=== PATIENT | male | born 1975 | race Caucasian/White ===

== ENCOUNTER → 2017-05-01 11:09 | Outpatient (POV) | payer BC, SELFPAY | PROVIDERS: Visit Provider Nurse Practitioner Acute Care | DX: Z00.00 Encounter for general adult medical examination without abnormal findings (principal) ==

== ENCOUNTER → 2017-11-20 10:30 | Outpatient (POV) | payer BC, SELFPAY | PROVIDERS: Visit Provider Nurse Practitioner Acute Care | DX: Z00.00 Encounter for general adult medical examination without abnormal findings (principal) ==

== ENCOUNTER 2019-05-30 16:30 | Outpatient (RCR) | payer BC, SELFPAY | END 2019-06-18 14:21 | disposition home or self-care (01) | LOC: PT.CARL 16:30 | PROVIDERS: Visit Provider Orthopaedic Surgery | DX: M17.0 Bilateral primary osteoarthritis of knee (principal); M25.562 Pain in left knee; M25.561 Pain in right knee | CPT/HCPCS: 97014; 97110; 97163; G0283 ==

== ENCOUNTER 2021-09-02 14:15 | Emergency (ER) | payer BC, SELFPAY ==
[2021-09-02 14:21] VITALS: BP 149/77; PULSE 66; RESP 18; TEMP 36.8; O2SAT 99; BMI 40.6
--- NOTE | 2021-09-02 14:25 | CT_ITS ---
FINAL REPORT TECHNIQUE: Axial images through the abdomen and pelvis were performed without contrast. This study was performed with techniques to keep radiation doses as low as reasonably achievable, (ALARA). Individualized dose reduction techniques using automated exposure control or adjustment of mA and/or kV according to the patient's size were employed. CLINICAL HISTORY: RIGHT FLANK PAIN FINDINGS: ABDOMEN: The lung bases are clear. The heart size is normal. There is mild fatty infiltration of the liver. The patient is status post cholecystectomy. The spleen is normal. No adrenal mass is identified. The aorta is normal in caliber. There is no significant free fluid or adenopathy. There is no nephrolithiasis. There is no hydronephrosis. There is mild right hydroureter. PELVIS: The appendix is not identified. There is mild right hydroureter with a probable 4 mm stone just proximal to the right UVJ. There is no significant free fluid or adenopathy. There is scattered diverticula in the sigmoid colon. IMPRESSION: Mild right hydroureter as detailed above. No hydronephrosis or nephrolithiasis. Reviewed, Interpreted and Dictated by Stalin Peoples III, MD Transcribed by Jeniffer Lovett Authenticated and [facility]
--- NOTE | 2021-09-02 14:27 | HMH.EDGENADL ---
ED Disposition Clinical Impression: Ureteral stone Disposition: Home, Self-Care Condition on Discharge: Good Instructions: DI for Kidney Stones Additional Instructions: follow up urology, return for worse Prescriptions: Ibuprofen [Motrin 800mg Tab] 800 mg PO Q8HP PRN #30 tab PRN Reason: Moderate Pain Transmission Status: Received by etaskr Referrals: Burak Loomis MD [Staff Physician] - - Critical Care Critical Care Time: No Attestation: On 09/02/21, the high probability of a clinically significant, sudden or life threatening deterioration of the following system(s) required my full and direct attention, intervention and personal management. The time I documented below is in addition to time spent performing reported procedures but includes the following listed in this critical care notation. Medical Decision Making - Medical Records Medical records reviewed: Yes: I reviewed the patient's medical records. - Lloyd Inquiry Pt receiving controlled substance: No Vital Signs: 09/02/21 14:21 09/02/21 15:30 09/02/21 16:20 Temperature 98.2 F Temperature Source Oral Pulse Rate 61 52 L Pulse Rate [Left Radial] 66 Respiratory Rate 18 16 Blood Pressure 135/72 128/72 Blood Pressure [Right Arm] 149/77 H Blood Pressure Mean [Right Arm] 101 Blood Pressure Position 02 Sat by Pulse Oximetry 99 96 100 Oxygen Delivery Method Room Air Room Air Room Air 09/02/21 16:35 Temperature 98.2 F Temperature Source Oral Pulse Rate 59 L Pulse Rate [Left Radial] Respiratory Rate 16 Blood Pressure 135/65 Blood Pressure [Right Arm] Blood Pressure Mean [Right Arm] Blood Pressure Position Sitting 02 Sat by Pulse Oximetry Oxygen Delivery Method Room Air - Lab Data Lab Results 09/02/21 14:27: Urine Color Yellow, Urine Appearance Clear, Urine pH 6.0, Ur Specific [place] 1.015, Urine Protein Negative, Urine Glucose (UA) Negative, Urine Ketones Negative, Urine Blood 2+, Urine Nitrate Negative, Urine Bilirubin Negative, Urine Urobilinogen 1.0, Ur Leukocyte Esterase Negative, Urine RBC 3-5, Urine WBC None, Ur Squamous Epith Cells None, Urine Bacteria None 09/02/21 15:35: WBC 14.7 H, RBC 4.58 L, Hgb 14.8, Hct 41.9 L, MCV 91.5, MCH 32.3 H, MCHC 35.3, RDW 12.9, Plt Count 203, MPV 8.3, Neut % (Auto) 87.1 H, Lymph % (Auto) 8.4 L, [place] % (Auto) 3.2, Eos % (Auto) 0.6, Baso % (Auto) 0.7, Neut # (Auto) 12.8 H, Lymph # (Auto) 1.2, [place] # (Auto) 0.5, Eos # (Auto) 0.1, Baso # (Auto) 0.1, Total Counted 100, Neutrophils % (Manual) 85 H, Band Neutrophils % 1.0, Lymphocytes % (Manual) 11, Monocytes % (Manual) 3, Platelet Estimate Normal, RBC Morphology Normal 09/02/21 15:35: Sodium 141, Potassium 3.8, Chloride 107, Carbon Dioxide 27, Anion Gap 10.8, BUN 15, Creatinine 1.30 H, Estimated Creat Clear 137, Estimated GFR 59, Est GFR ( Amer) 72, Glucose 119 H, Calcium 9.4, Total Bilirubin 1.0, AST 40, ALT 40, Alkaline Phosphatase 83, Total Protein 7.6, Albumin 4.6, Globulin 3.0, Albumin/Globulin Ratio 1.5, Lipase 69 Result diagrams: 09/02/21 15:35 09/02/21 15:35 Orders (Tests/Meds): ED MEDICATIONS Discontinued Medications Generic Name Dose Route Start Last Admin Trade Name Freq PRN Reason Stop Dose Admin Sodium Chloride 10 ml 09/02/21 14:25 Sodium Chloride 0.9% 10ml Flush Syringe IV 10/02/21 14:24 NEEDED PRN Maintain IV Site General Adult HPI - General Chief complaint: PAIN Stated complaint: lower back pain, vomiting Time Seen by Provider: 09/02/21 14:27 Mode of Arrival: Ambulatory Limitations: No Limitations Description of Symptoms (Recalled from ER Triage Doc. by RN): pt to ed c/o lower right back pain. pt states it is sharp in nature and gradually got worse today. pt states he has been having urinary urgency. pt reports a hx of kidney stones. pt reports one episode of emesis. - History of Present Illness HPI narrative: rt low back/flank pain this am, better now h/
[2021-09-02 14:35] LABS: Microscopic, Urine URINE MICROSCOPIC (MICROSCOPIC)
[2021-09-02 14:37] LABS: Appearance,Urine CLEAR (Clear); Bilirubin,Urine Negative (Negative); Blood, Urine 2+ (Negative); Color,Urine YELLOW (Yellow); Glucose,Urine (UA) Negative (Negative); Ketones,Urine Negative (Negative); Leukocyte Esterase,Urine Negative (Negative); Nitrate,Urine Negative (Negative); Protein,Urine Negative (Negative); Specific Gravity, Urine 1.015 (1.005-1.030)
--- NOTE | 2021-09-02 15:10 | PC.NURSE ---
pt and updated on plan of care
[2021-09-02 15:30] VITALS: BP 135/72; PULSE 61; RESP 16; O2SAT 96
--- NOTE | 2021-09-02 15:32 | PC.NURSE ---
lab called for blood collect
[2021-09-02 15:55] LABS: Basophils # 0.1 K/mm3 (0-0.2); Basophils % 0.7 % (0.1-2.0); Eosinophils # 0.1 K/mm3 (0.0-0.4); Eosinophils % 0.6 % (0.1-12.0); Hematocrit 41.9 % (42.0-52.0); Hemoglobin 14.8 g/dL (14.1-18.0); Lymphocytes # 1.2 K/mm3 (0.7-4.5); Lymphocytes % 8.4 % (10-50); Mean Corpuscular HGB Conc 35.3 g/dL (31.8-35.4); Mean Corpuscular Hemoglobin 32.3 pg (27.0-31.2); Mean Corpuscular Volume 91.5 fl (80-94); Mean Platelet Volume 8.3 fl (7.4-10.4); Monocytes # 0.5 K/mm3 (0.1-1.0); Monocytes % 3.2 % (1.7-9.3); Neutrophils # 12.8 K/mm3 (1.8-7.8); Neutrophils % 87.1 % (37.0-80.0); Platelet Count 203 K/mm3 (142-424); Red Blood Count 4.58 M/mm3 (4.60-6.20); Red Cell Distribution Width 12.9 % (11.5-17.5); White Blood Count 14.7 K/mm3 (4.8-10.8)
[2021-09-02 16:02] LABS: MANUAL DIFFERENTIAL MANUAL DIFFERENTIAL (MANUAL DIFF)
[2021-09-02 16:04] LABS: Chloride 107 mmol/L (98-107)
[2021-09-02 16:05] LABS: Potassium 3.8 mmoL/L (3.5-5.1); Sodium 141 mmol/L (136-145)
[2021-09-02 16:07] LABS: Alanine Aminotransferase 40 U/L (12-78); Alkaline Phosphatase 83 U/L (38-126); Aspartate Amino Transferase 40 U/L (17-59); Blood Urea Nitrogen 15 mg/dl (9-20); Creatinine Clearance Estimated 137 mL/min (50-200); Estimated Glomerular Filt Rate 59 ml/min (>60); GFR (African American) 72 ML/MIN (>60)
[2021-09-02 16:08] LABS: Albumin Level 4.6 g/dl (3.5-5.0); Albumin/Globulin Ratio 1.5 (1.1-1.8); Anion Gap 10.8 mEq/L (5-15); Calcium 9.4 mg/dl (8.4-10.2); Carbon Dioxide 27 mmol/L (22.0-30.0); Glucose 119 mg/dl (74-100); Lipase 69 U/L (23-300); Total Protein,Serum 7.6 g/dl (6.3-8.2)
[2021-09-02 16:14] LABS: Lymphocytes % 11 % (10-50); Monocytes % 3 % (2-9); Neutrophils % 85 % (42-76); Platelet Estimate Normal; RBC Morphology Normal; Total Cells Counted 100
--- NOTE | 2021-09-02 16:19 | PC.NURSE ---
pt resting quietly at bedside. pt offered warm blanket, pt refused.
[2021-09-02 16:20] VITALS: BP 128/72; PULSE 52; O2SAT 100
[2021-09-02 16:35] VITALS: BP 135/65; PULSE 59; RESP 16; TEMP 36.8; O2SAT 96
== END 2021-09-02 16:36 | disposition home or self-care (01) ==
LOC: ER 14:23
PROVIDERS: Emergency Provider Emergency Medicine; PCP Nurse Practitioner Family
DX: N20.1 Calculus of ureter (principal)
CPT/HCPCS: 36415; 74176; 80053; 81001; 83690; 85007; 85025; 99284

== ENCOUNTER 2021-09-14 07:00 | Outpatient (RCR) | payer BC, SELFPAY | END 2021-10-25 16:44 | disposition home or self-care (01) | LOC: PT.CARL 07:00 | PROVIDERS: Visit Provider Nurse Practitioner Family | DX: M54.50 Low back pain, unspecified (principal) | CPT/HCPCS: 97010; 97012; 97014; 97110; 97140; 97163; G0283 ==

== ENCOUNTER → 2021-12-07 10:24 | Outpatient (CLI) | payer BC, SELFPAY ==
--- NOTE | 2021-12-07 10:28 | XR_ITS ---
FINAL REPORT CLINICAL HISTORY: KIDNEY STONE COMPARISON: CT dated 09/02/2021 FINDINGS: ABDOMEN SINGLE VIEW There is an unremarkable gas pattern. No bowel dilation is identified. There is a right pelvic calcification, likely corresponds to chronic distal right ureteral stone measuring 5 x 4 mm. No radiopaque renal stone is identified. The patient is status post cholecystectomy. IMPRESSION: No renal stone identified. Reviewed, Interpreted and Dictated by Jignesh Wright MD Transcribed by Angie Ring Authenticated and [facility]
== END ==
PROVIDERS: PCP Nurse Practitioner Family; Visit Provider Urology
DX: N20.0 Calculus of kidney (principal)
CPT/HCPCS: 74018

== ENCOUNTER → 2021-12-08 12:20 | Outpatient (CLI) | payer BC, SELFPAY | PROVIDERS: PCP Nurse Practitioner Family; Visit Provider Urology | DX: Z01.812 Encounter for preprocedural laboratory examination (principal); Z20.822 Contact with and (suspected) exposure to COVID-19; N20.1 Calculus of ureter | CPT/HCPCS: C9803; U0003; U0005 ==

== ENCOUNTER 2021-12-10 08:20 | Day surgery (SDC) | payer BC, SELFPAY ==
[2021-12-08 12:42] VITALS: BMI 42.7
[2021-12-10] VITALS (10 sets, daily range): BP systolic 112–149; BP diastolic 62–83; PULSE 67–78; RESP 13–18; TEMP 36.4–36.6; O2SAT 92–98
--- NOTE | 2021-12-10 09:12 | EXP.ANES.CKL ---
PFSH PFS Medical History Arthritis GERD (gastroesophageal reflux disease) Hyperlipidemia Hypertension DANG on CPAP Surgical History History of appendectomy History of cholecystectomy History of excision of lesion Family History Other No significant family history Social History Smoking Status: Never smoker alcohol intake: never substance use type: denies use current occupational status: employed Travel in the last 8 weeks: None [facility] Anesthesia Checklist Patient Identification Patient Identification: Arm Band and Verbal (Name & ) Structural Data Admitted From: Home Planned Operative Procedure/s: Ureteroscopy Consent for Planned Operative Procedure(s) Verified: Yes NPO Status Verified Time NPO: 00:00 Chart Verification Results Verified: CBC and BMP Additional verifications Anesthesia Reactions: No Hx Blood Transfusions: No Blood Transfusion Reaction: No Airway Assessment C-Spine Mobility Assessed: Yes TMJ Mobility Assessed: Yes Dentition: Good Dentition Neurological Assessment Level of Consciousness: Awake Hx Seizures: No Numbness or tingling in extremities: No Anesthesia Plan Anesthesia Risk discussed: Yes Anesthesia Plan: Verified ASA Class: III Anesthesia Type: General
--- NOTE | 2021-12-10 11:27 | XR_ITS ---
FINAL REPORT CLINICAL HISTORY: STONE EXTRACTION IN OR ft: 0:22 FINDINGS: Fluoroscopic guidance was provided for the operating services. A single spot film was provided. 22 seconds of fluoroscopy time was utilized. IMPRESSION: 22 seconds of fluoroscopy time. Reviewed, Interpreted and Dictated by Jignesh Wright MD Transcribed by Alon Mendoza Authenticated and [facility]
--- NOTE | 2021-12-10 11:29 | P.PNANES_ITS ---
[facility] Anesthesia Record Part I Anesthesia Record I Intake, IV Amount: 400 Estimated blood loss (mL): 0 Urine output (mL): 0 Blood Pressure: 120/63 SaO2: 92 Pulse Rate: 67 Respiratory Rate: 13 Temperature: 97.5 F Patient is:: Drowsy and Oral/Nasal airway Stable to PACU at:: 11:28
--- NOTE | 2021-12-10 11:36 | EXP.OP.NOTE ---
Date of procedure: 12/10/21 Pre-op Diagnosis:: 5 mm right distal ureteral stone Post-op Diagnosis:: 5 mm distal ureteral stone, right ureteral stenosis Procedure performed:: Right ureteroscopy with ureteral dilation and stone extraction Surgeon:: Burak Loomis MD MANAGER HRIS:: Dev Reynoso Anesthesia: LMA Estimated blood loss (mL): 0 Clinical Note:: 46-year-old white male with history of right distal ureteral stone and Christa. He has continued to have some urinary frequency and urgency and recent KUB shows a calcification in the region of the right distal ureter. He has not had a lot of right flank pain but does have a history of some chronic back pain. Operative findings:: 5 mm stone noted in the distal ureter. The distal ureteral segment was stenotic and was dilated to allow passage of the stone. Operative note:: Patient taken to the operating room after informed consent was obtained. He was placed on the operating table general anesthesia administered. He was prepped draped in the standard surgical fashion and preoperative antibiotics and sequential compression devices placed. He was placed into the dorsal lithotomy position. The 22 Michael passed into the urethra and into the bladder. The bladder was examined in a systematic fashion and no abnormalities were noted. The ureteral orifices in their normal anatomic position. A guidewire passed into the right ureteral orifice and under fluoroscopy passed into the right renal pelvis without evidence of obstruction. Fluoroscopy did reveal calcification region of the distal ureter. The cystoscope removed and a semirigid ureteroscope passed into the bladder and into the right ureter and up to the level of the stone. A 1.9 [place] stone basket was used to grasp the stone but it was unable to pass through the distal ureteral segment. The stone was then disengaged from the basket and the ureteroscope removed. A 4 x 15 mm ureteral dilator passed over the guidewire and under fluoroscopy the distal ureter dilated to 13 preeti for 3 minutes. Balloon then deflated and removed. The semirigid ureteroscope was repassed up to the level of the stone. The stone was grasped and removed with still little bit of resistance right at the ureteral orifice. The stone was removed and passed off. Looking back into the bladder and a little bit of trauma was noted at the right ureteral orifice of the oozing was noted from the superior segment of the orifice. The guidewire was removed as I do not believe a stent is necessary. The bladder drained scope removed Urojet placed into the urethra for comfort. Patient tolerated procedure well no complications. Condition: stable Disposition: PACU Specimens:: Stone Complications:: None
--- NOTE | 2021-12-10 12:08 | SUR.PHASEI ---
1157- detailed report called to samina booker in post op 1159- pt left in stable condition on monitors with samina booker. All vitals stable
--- NOTE | 2021-12-10 14:28 | EXP.ANES.II ---
[facility] Anesthesia Record Part II Anesthesia Record Part II Discharge Time: 11:58 Destination: Surgical Day Care (OP Surgery) PACU nurse assessment reviewed?: Yes Patient Condition:: Good Anesthesia Complications:: None Swallowing reflex intact?: Yes Cyanosis?: No Blood Pressure: 135/82 Pulse Rate: 76 Temperature: 97.5 F Mental Status: Alert & Oriented Pain level:: 0 Nausea and/or vomitting:: None Intake, IV Amount: 0
== END 2021-12-10 12:29 | disposition home or self-care (01) ==
PROVIDERS: PCP Nurse Practitioner Family; Visit Provider Urology
PROC: (CPT 52352; principal; 2021-12-10 10:00)
DX: N20.1 Calculus of ureter (principal); Q62.10 Congenital occlusion of ureter, unspecified; Z79.899 Other long term (current) drug therapy
CPT/HCPCS: 52352; 74018; 96374